=== PATIENT | male | born 1970 | race Caucasian/White ===

== ENCOUNTER 2021-11-13 08:22 | Outpatient (CLI) | payer BC, SELFPAY ==
[2021-11-13 09:47] LABS: Cholesterol 190 mg/dL (0-200); HDL Direct 39 mg/dL; Triglycerides 292 mg/dL (<150)
[2021-11-13 09:58] LABS: LDL Cholesterol Direct 92 mg/dL
== END 2021-11-13 08:23 | disposition home or self-care (01) ==
LOC: ANHLAB 08:24
PROVIDERS: PCP Internal Medicine; Visit Provider Internal Medicine
DX: Z00.00 Encounter for general adult medical examination without abnormal findings (principal)
CPT/HCPCS: 36415; 80061